=== PATIENT | female | born 1955 | race Caucasian/White ===

== ENCOUNTER 2018-08-03 13:38 | Day surgery (SDC) | payer OTHER, SELFPAY ==
--- NOTE | 2018-08-03 | PATH_ITS ---
[facility] Accession Number: [id number] . 01 Material submitted: . SIGMOID COLON POLYP AT 30CM . 02 Diagnosis: Sigmoid Colon Polyp at 30 cm: Tubular adenoma. MRV/08/07/2018 . 02 Electronically signed: . Rafal Cordova MD, PhD, Pathologist NPI- [id number] . 01 Gross description: . Received in formalin, labeled sigmoid colon polyp @30 cm, is a fragment of garrett tissue (0.3 x 0.3 x 0.1 cm). Entirely submitted in cassette A1. ([id number]) /[facility] . 02 Pathologist provided ICD-10: D12.5 . 02 CPT . 942345 Performed at: 01 [facility] [address] [id number] MD Brien Montaño MD Phone: [phone] Performed at: 02 [facility] [place] [address] [place], [place] [id number] MD Roberto Pizano MD Phone: [phone]
[2018-08-03 14:04] VITALS: BP 114/69; PULSE 81; RESP 16; TEMP 36.6; O2SAT 93; BMI 25.7
[2018-08-03] MEDS: SODIUM CHLORIDE 0.9% 1,000 ML 200 ML IV (14:12)
--- NOTE | 2018-08-03 14:30 | P.HP_ITS ---
History of Present Illness Date Patient Seen: 08/03/18 Time Patient Seen: 14:26 Chief complaint: 41161 SCREENING COLONOSCOPY Narrative: 62-year-old female who presents for colorectal screening. It has been 7 years from her last examination. She reports findings of benign polyps at that time. That study was done at an outlying institution. Recently she has had no new issues with gastrointestinal symptoms. Denies any nausea, vomiting, abdominal pain, unintended weight loss, loss of appetite, change in bowel habits, melena, hematochezia, bright red blood per rectum, diarrhea, or constipation. She has had more frequent loose stools but this has been ongoing for 1-2 years now. Patient History Medical History Asthma (Acute) Depression (Acute) Diverticulosis (Acute) History of diverticulitis (Acute) History of incontinence of feces (Acute) Personal history of colonic polyps (Acute) Surgical History History of colonoscopy (Acute) History of cataract removal with insertion of prosthetic lens Status post knee surgery Family & Social History Family History: Reviewed 08/03/18 by Abilio Wagoner MD Meds Home Medications Medication Instructions Recorded Confirmed Type albuterol sulfate [Ventolin HFA] 2 puff INH Q4HP PRN #0 07/20/17 08/03/18 History sertraline [Zoloft] 50 mg PO DAILY 08/03/18 08/03/18 History Allergies Allergy/AdvReac Type Severity Reaction Status Date / Time codeine [CODEINE] Allergy Unknown N/V Verified 08/03/18 14:13 meperidine [MEPERIDINE] Allergy Unknown N/V Verified 08/03/18 14:13 Review of Systems Review of Systems All systems reviewed & are unremarkable except as noted in HPI and below Exam Vital Signs (past 8 hours): - 08/03/18 14:04 Temperature 97.8 F Pulse Rate 81 Respiratory Rate 16 Blood Pressure 114/69 Pulse Oximetry 93 Oxygen Delivery Method Room Air Narrative Exam Narrative: Well-nourished well-developed female in no acute distress. Alert oriented x3 Sclera nonicteric Regular rate and rhythm No audible wheezes Abdomen soft, nondistended, nontender, no masses Extremities show no clubbing, cyanosis, or edema Objective Labs Labs: No recent radiographic or laboratory studies for review Assessment & Plan Plan: Assessment/Plan Narrative: 62-year-old female with personal history of colon polyps requiring colorectal surveillance. It has been 7 years since her last examination. I recommend colonoscopy. Technical details of the procedure were reviewed. Risks, benefits , alternatives were explained. Risks including but not limited to sedation, aspiration, bleeding, pain, missed lesion, incomplete examination, need for further radiographic studies, colonic perforation, need for major abdominal surgery, and all attendant risks of major surgery were explained in detail. All questions were answered to her satisfaction, and she voiced understanding. Consent was placed on the chart. We will proceed as above.
--- NOTE | 2018-08-03 14:30 | PM.PREOP ---
Pre-operative Note Interval Note Pre-op Check: Yes History & Physical Reviewed by Physician, Yes Exam Performed and Yes History & Physical exam performed today by Physician Changes: No H&P completed within 30 days and has changed as indicated here:: Patient seen and examined today. She has a personal history of colon polyps for which she requires surveillance. History physical examination dated today is dictated and on the chart. Proceed with colonoscopy today as planned. ASA Class (for procedural sedation): II
[2018-08-03 14:54] VITALS: BP 105/57; PULSE 72; RESP 16; TEMP 36; O2SAT 95
[2018-08-03] MEDS: ONDANSETRON 4 MG/2 ML INJ IV (14:56)
[2018-08-03] MEDS: MIDAZOLAM 5 MG/5 ML VIAL IV (14:57)
--- NOTE | 2018-08-03 14:57 | PM.OP.ENDO ---
Operative Date/Time/Diagnoses Date of procedure: 08/03/18 Time of procedure: 14:57 Pre-op diagnosis: Personal history of colon polyps Post-op diagnosis: other (Sigmoid colon polyp and diverticulosis) Procedure & Clinicians Study performed: 1. Sedation per surgeon 2. Flexible sigmoidoscopy with cold forceps polypectomy Same procedure as scheduled: No (Unable to complete full colonoscopy due to difficulty with conscious sedation) Indications: 62-year-old female with personal history of colon polyps. It has been 7 years since her last examination. Colonoscopy is currently recommended. Surgeon: Abilio Wagoner Procedure Notes SCOAP/Timeout: Yes Procedure in detail: After obtaining informed consent the patient was brought to the endoscopy suite and attached all appropriate cardiopulmonary monitors. Nasal cannula oxygen was applied. She was placed in left lateral decubitus position. SCOAP time out was performed per standard protocol. Intravenous sedation was achieved per the surgeon using fentanyl and Versed. Patient became somewhat agitated and then briefly apneic with saturation of 87% subsequently recovered without incident. Digital rectal examination revealed no masses or abnormalities. She did have external hemorrhoids which were otherwise not thrombosed or inflamed. Colonoscope was inserted into the rectum and the bowel was insufflated with carbon dioxide. Under direct visualization of the colonic lumen the scope was advanced to the hepatic flexure. Splenic flexure was initially navigated to the distal transverse colon but again the patient continued to have difficulties with agitation and discomfort. Further conscious sedation using Versed and fentanyl resulted again in brief apnea. Ironically patient also became somewhat paradoxically agitated as well even at one point sitting nearly upright. Examination was briefly suspended and the patient became adequately sedated but manifested systolic blood pressure of 76 mm of mercury. However, her blood pressure immediately recovered to systolic of 96 mm of mercury with minimal stimulation. A 2nd attempt at full colonoscopy was then made as her vital signs stabilized. Nevertheless she became uncomfortable as I attempted to negotiate the splenic flexure but further attempts at deeper sedation were unsafe given the patient's episodes of apnea, brief hypoxia, and brief hypotension. In my opinion, she requires general anesthesia to potentially complete the study for full colonoscopy. Scope was slowly withdrawn and the left colon was meticulously examined. A polyp was identified adjacent to a diverticulum at 30 cm in the sigmoid colon, subsequently removed with cold forceps. Hemostasis was verified. No other abnormalities were noted and the scope was withdrawn. Given the above issues I chose to terminate the procedure at this time and returned the patient to recovery room in stable condition. We will reschedule under general anesthesia as above. Scope withdrawal time: Not applicable Sedation minutes: 18 Findings: diverticulosis and polyp Specimen(s): other (Sigmoid colon polyp at 30 cm) Complications: none Recommendations: High fiber diet and Other recommendation (Will reschedule colonoscopy under anesthesia) Plan for aftercare: 1. Discharged home 2. Reschedule colonoscopy as above Follow up: as needed Disposition: PACU
[2018-08-03 14:59] VITALS: BP 93/43; PULSE 62; RESP 11; O2SAT 93
[2018-08-03] MEDS: fentaNYL 250 MCG/5 ML INJ IV (14:59)
[2018-08-03 15:04] VITALS: BP 99/58; PULSE 66; RESP 12
[2018-08-03 15:09] VITALS: BP 104/67; PULSE 73; RESP 13; O2SAT 98
[2018-08-03 15:30] VITALS: BP 114/65; PULSE 61; RESP 16; TEMP 36.7; O2SAT 99
== END 2018-08-03 15:40 | disposition home or self-care (01) ==
PROVIDERS: Family Provider Obstetrics & Gynecology; PCP Obstetrics & Gynecology; Visit Provider Surgery
PROC: 0DJD8ZZ Inspection of Lower Intestinal Tract, Via Natural or Artificial Opening Endoscopic (ICD-10-PCS; CPT 45378; principal; 2018-08-03 15:00)
DX: Z12.11 Encounter for screening for malignant neoplasm of colon (principal); D12.5 Benign neoplasm of sigmoid colon; K57.30 Diverticulosis of large intestine without perforation or abscess without bleeding; K64.4 Residual hemorrhoidal skin tags; J45.909 Unspecified asthma, uncomplicated; F32.9 Major depressive disorder, single episode, unspecified; Z86.010 Personal history of colon polyps; Z79.899 Other long term (current) drug therapy
CPT/HCPCS: 45331; 99152; J2250; J2405; J3010

== ENCOUNTER → 2019-12-06 10:43 | Outpatient (CLI) | payer MEDICARE, OTHER, SELFPAY ==
--- NOTE | 2019-12-07 15:12 | PM.PFT.1 ---
Pulmonary Function Test Referral & Results Date Patient Seen: 12/06/19 Requesting provider: Karyn Del Rio Results: The spirometry demonstrates an FVC of 2.95 L which is 90% of predicted. The FEV1 was measured at 2.36 L which is 94% of predicted. The FEV1/FVC ratio was 80 which is 104% of predicted. Following the administration of bronchodilator there was a 28% improvement in FEF 25-75% Lung volumes show an SVC of 2.89 L which is 94% of predicted. The diffusing capacity was measured at 21.1 which is 82% of predicted. The maximum voluntary ventilation was minimally reduced Interpretation: This study demonstrates probably normal pulmonary function. There is evidence of perhaps extremely minimal obstructive lung disease based on shape a flow volume loop and minimal improvement in small airway flow after bronchodilator as above with improvement in FEF 25-75% Clinical correlation suggested
== END ==
PROVIDERS: PCP Family Medicine; Visit Provider Family Medicine
DX: J45.40 Moderate persistent asthma, uncomplicated (principal)
CPT/HCPCS: 94060; 94726; 94729

== ENCOUNTER → 2019-12-06 10:47 | Outpatient (CLI) | payer MEDICARE, OTHER, SELFPAY ==
--- NOTE | 2019-12-06 11:21 | DI.CT.S_ITS ---
PROCEDURE: CT ABDOMEN PELVIS W CON INDICATIONS: LOWER ABDOMINAL PAIN, UNSPECIFIED TECHNIQUE: After the administration of oral and intravenous contrast, 5 mm thick sections acquired from the diaphragms to the symphysis. 5 mm thick coronal and sagittal reformats were performed. For radiation dose reduction, the following was used: automated exposure control, adjustment of mA and/or kV according to patient size. COMPARISON: None. FINDINGS: Image quality: Excellent. ABDOMEN: Lung bases: Lung bases are clear. Heart size is normal. Solid organs: Scattered hepatic hypodensities, subcentimeter in size, therefore too small to characterize Gallbladder contracted otherwise unremarkable. Biliary system is non-dilated. Pancreas enhances normally. Spleen is normal in size and enhancement. No adrenal nodules. Kidneys are normal in size and enhancement, without hydronephrosis. Simple appearing left renal cyst. Peritoneum and bowel: Numerous colonic diverticula are seen. There is sigmoid pericolonic inflammatory change and mural thickening seen on image 61 series 2, where there is inflamed diverticulum measuring 9 mm. No abscess seen. No evidence of perforation. The appendix appears normal. Diffuse moderate stool No free fluid or air. Nodes and vessels: No retroperitoneal or mesenteric adenopathy. Aorta and inferior vena cava are normal in caliber. Miscellaneous: No ventral hernias. PELVIS: Genitourinary: Bladder wall thickness is normal. There are multiple presumed heterogeneous uterine calcified fibroids. Miscellaneous: No inguinal hernias or adenopathy. Bones: No suspicious bony lesions. No vertebral body compression fractures. IMPRESSION: Acute sigmoid diverticulitis. No evidence of abscess or free air. Normal appendix Multiple calcified uterine fibroids Dictated by: Edin Pate M.D. on 12/06/2019 at 14:45 Approved by: Edin Pate M.D. on 12/06/2019 at 15:10
== END ==
PROVIDERS: PCP Family Medicine; Visit Provider Family Medicine
DX: R10.30 Lower abdominal pain, unspecified (principal); R19.7 Diarrhea, unspecified; N28.1 Cyst of kidney, acquired; K57.32 Diverticulitis of large intestine without perforation or abscess without bleeding; D25.9 Leiomyoma of uterus, unspecified; I45.10 Unspecified right bundle-branch block; R07.89 Other chest pain; E78.00 Pure hypercholesterolemia, unspecified; J45.40 Moderate persistent asthma, uncomplicated
CPT/HCPCS: 36415; 74177; 80061; 94060; 94726; 94729; Q9967

== ENCOUNTER → 2019-12-06 15:28 | Outpatient (CLI) | payer MEDICARE, OTHER, SELFPAY ==
[2019-12-06 16:44] LABS: Cholesterol 270 mg/dL (140-199); HDL Cholesterol 71 mg/dL (40-60); LDL Cholesterol Calculated 182 mg/dL (<100); Triglycerides 83 mg/dL (35-150)
== END ==
PROVIDERS: PCP Family Medicine; Visit Provider Internal Medicine Cardiovascular Disease
DX: I45.10 Unspecified right bundle-branch block (principal); R07.89 Other chest pain; E78.00 Pure hypercholesterolemia, unspecified
CPT/HCPCS: 36415; 80061

== ENCOUNTER → 2021-03-02 19:56 | Outpatient (ROUT) | payer MEDICARE, OTHER, SELFPAY ==
[2021-03-02 20:01] LABS: Add Manual Diff / Slide Review NO; Basophils Absolute Auto 0 /uL (0-100); Basophils Percent Auto 0.2 % (0-2); Eosinophils Absolute Auto 100 /uL (0-450); Eosinophils Percent Auto 2.7 % (2-4); Hematocrit 42.7 % (36-46); Hemoglobin 13.9 g/dL (12.0-16.0); Lymphocytes Absolute Auto 1100 /uL (1100-4500); Lymphocytes Percent Auto 24.1 % (25-40); Mean Corpuscular HGB Conc 32.6 % (30-36); Mean Corpuscular Hemoglobin 30.3 PG (26-34); Mean Corpuscular Volume 93.1 fL (80-100); Monocytes Absolute Auto 400 /uL (0-900); Monocytes Percent Auto 8.9 % (3-14); Neutrophils Absolute Auto 3000 /uL (1500-7000); Neutrophils Percent Auto 64.1 % (50-75); Platelet Count 197 X10^3/uL (150-400); Red Blood Cell Count 4.58 X10^6/uL (4.0-5.2); Red Cell Distribution Width 13.4 % (11.6-14.8); White Blood Cell Count 4.7 X10^3/uL (4.5-11.0)
[2021-03-02 20:24] LABS: Alanine Aminotransferase 30 IU/L (<35); Albumin Globulin Ratio 1.4 (1.0-2.8); Alkaline Phosphatase 76 U/L (38-126); Aspartate Aminotransferase 34 IU/L (14-36); BUN Creatinine Ratio 24.2 (6-22); Bilirubin Total 0.3 mg/dL (0.2-1.3); Blood Urea Nitrogen 16 mg/dL (7-17); Calcium 9.7 mg/dL (8.4-10.2); Carbon Dioxide 29 mmol/L (22-32); Chloride 105 mmol/L (98-107); Cholesterol 180 mg/dL (140-199); Estimated Glomerular Filt Rate > 60.0 mL/min (>60); Globulin 2.9 g/dL (1.7-4.1); Glucose 94 mg/dL (80-110); HDL Cholesterol 61 mg/dL (40-60); HEMOLYSIS < 15 (0-50); LDL Cholesterol Calculated 105 mg/dL (<100); Potassium 4.4 mmol/L (3.4-5.1); Sodium 140 mmol/L (137-145); Total Protein 6.9 g/dL (6.3-8.2); Triglycerides 71 mg/dL (35-150)
[2021-03-02 20:54] LABS: TSH w/ Reflex to FT4 1.78 uIU/mL (0.47-4.68)
== END ==
PROVIDERS: PCP Family Medicine; Visit Provider Family Medicine
DX: E78.5 Hyperlipidemia, unspecified (principal); F32.9 Major depressive disorder, single episode, unspecified; F41.9 Anxiety disorder, unspecified; F43.10 Post-traumatic stress disorder, unspecified
CPT/HCPCS: 80053; 80061; 84443; 85025

== ENCOUNTER → 2022-07-07 12:10 | Outpatient (CLI) | payer MEDICARE, OTHER, SELFPAY ==
[2022-07-07 19:51] LABS: Add Manual Diff / Slide Review NO; Basophils Absolute Auto 0 /uL (0-100); Basophils Percent Auto 0.2 % (0-2); Eosinophils Absolute Auto 100 /uL (0-450); Hematocrit 39.8 % (36-46); Hemoglobin 13.8 g/dL (12.0-16.0); Lymphocytes Absolute Auto 800 /uL (1100-4500); Lymphocytes Percent Auto 25.4 % (25-40); Mean Corpuscular HGB Conc 34.5 % (30-36); Mean Corpuscular Volume 89.7 fL (80-100); Monocytes Absolute Auto 200 /uL (0-900); Monocytes Percent Auto 6.3 % (3-14); Neutrophils Absolute Auto 2200 /uL (1500-7000); Neutrophils Percent Auto 66.1 % (50-75); Platelet Count 177 X10^3/uL (150-400); Red Blood Cell Count 4.44 X10^6/uL (4.0-5.2); Red Cell Distribution Width 13.4 % (11.6-14.8); White Blood Cell Count 3.3 X10^3/uL (4.5-11.0)
[2022-07-07 19:57] LABS: BUN Creatinine Ratio 24.6 (6-22); Blood Urea Nitrogen 16 mg/dL (7-17); Calcium 8.6 mg/dL (8.4-10.2); Carbon Dioxide 29 mmol/L (22-32); Chloride 102 mmol/L (98-107); Cholesterol 243 mg/dL (140-199); Estimated Glomerular Filt Rate > 60 mL/min (>60); Glucose 92 mg/dL (80-110); HDL Cholesterol 50 mg/dL (40-60); HEMOLYSIS < 15 (0-50); LDL Cholesterol Calculated 175 mg/dL (<100); Potassium 4.1 mmol/L (3.4-5.1); Sodium 137 mmol/L (137-145); Triglycerides 88 mg/dL (35-150)
[2022-07-07 20:29] LABS: TSH w/ Reflex to FT4 1.32 uIU/mL (0.47-4.68)
[2022-07-08 17:09] LABS: Hep C Virus Ab w/Reflex Quant NEGATIVE s/c (NEGATIVE)
== END ==
PROVIDERS: PCP Physician Assistant; Visit Provider Family Medicine
DX: E78.2 Mixed hyperlipidemia (principal); Z13.1 Encounter for screening for diabetes mellitus; F32.2 Major depressive disorder, single episode, severe without psychotic features; F41.1 Generalized anxiety disorder; I10 Essential (primary) hypertension; F43.10 Post-traumatic stress disorder, unspecified
CPT/HCPCS: 80048; 80061; 84443; 85025; 86803